=== PATIENT | male | born 1930 | race Caucasian/White ===

== ENCOUNTER 2018-09-12 07:37 | Emergency (ER) | payer MEDICARE ==
[~2018-09-12] VITALS: Ht 180.3 cm; Wt 80.3 kg
[2018-09-12] MEDS ORDERED: KETOROLAC TROMETHAMINE 30 MG/ML VIAL ONE (08:29)
[2018-09-12] MEDS ORDERED: KETOROLAC TROMETHAMINE 30 MG/ML VIAL IM ONE (09:00)
--- NOTE | 2018-09-12 09:24 | Diagnostic Imaging Report ---
EXAM: CT Abdomen and Pelvis WITHOUT contrast INDICATION: ^[id number] ^[id number] COMPARISON: None. TECHNIQUE: Abdomen and pelvis were scanned utilizing a multidetector helical scanner from the lung base to the pubic symphysis without administration of IV contrast. Absence of intravenous contrast decreases sensitivity for detection of focal lesions and vascular pathology. Coronal and sagittal reformations were obtained. Routine protocol was performed. IV CONTRAST: None. 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 LOWER THORAX: Subsegmental atelectasis in both lung bases. Subpleural reticulation of the lungs in the right lower lobe may represent nonspecific mild pulmonary fibrosis. Mild bronchiectasis. Interstitial edema. Diffuse coronary artery calcifications. HEPATOBILIARY: No focal hepatic lesions. No biliary ductal dilation. GALLBLADDER: No radio-opaque stones or sludge. No wall thickening. SPLEEN: No splenomegaly. PANCREAS: No focal masses or ductal dilatation. ADRENALS: No adrenal nodules KIDNEYS/URETERS: No hydronephrosis. No cystic or solid mass lesions. 2 mm faint calcification in the interpolar region of the right kidney on coronal image 65 suggestive of small nonobstructing stone. No additional calcified stones in the remaining collecting system. The left ureter is mildly prominent, nonspecific finding. GI TRACT: No abnormal distention, wall thickening, or evidence of bowel obstruction. Moderate amount of retained stool throughout the colon without bowel dilatation. Appendix is normal. PELVIC ORGANS/BLADDER: The prostate is enlarged measuring 5.8 cm in transverse diameter. The urinary bladder is moderately distended and associated with diffuse circumferential wall thickening. No calcified stones within the urinary bladder. LYMPH NODES: No lymphadenopathy. VESSELS: The abdominal aorta and pelvic arteries are tortuous but normal in size and associated with moderate nonobstructing atherosclerotic calcifications. Moderate calcifications of both proximal renal arteries. PERITONEUM / RETROPERITONEUM: No free air or fluid. BONES: Moderate multilevel degenerative changes of the lumbar spine, worse at L1-L2 and L5-S1. Right hip replacement. SOFT TISSUES: Moderate elevation of the left hemidiaphragm. IMPRESSION: Small nonobstructing right nephrolithiasis. Signed by: Dr. Mitzi Bello M.D. on 09/12/2018 9:20 AM
[2018-09-12 10:05] VITALS: BP 152/81
--- NOTE | 2018-09-12 10:40 | Diagnostic Imaging Report ---
LUMBAR SPINE X-RAY - 3 VIEWS HISTORY: ^[id number] ^[id number] COMPARISON: None available. FINDINGS: Bones: No acute displaced fracture. Chronic mild wedge compression deformity of T12 and L1 with associated secondary degenerative changes. Minimal retrolisthesis of L5 over S1 x 2 mm. Rotatory scoliosis. Joints: Advanced multilevel degenerative changes throughout the lumbar spine, worse at T12-L1 and L1-L2 vertebral bodies. No significant foraminal narrowing. Soft tissues: Diffuse vascular calcifications. IMPRESSION: Chronic mild wedge compression deformity of T12 and L1. 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 Signed by: Dr. Mitzi Bello M.D. on 09/12/2018 10:37 AM
== END 2018-09-12 10:04 | disposition home or self-care (01) ==
LOC: FSED 07:37
DX: M54.5 Low back pain (principal); N20.1 Calculus of ureter; N40.0 Benign prostatic hyperplasia without lower urinary tract symptoms; I48.2 Chronic atrial fibrillation; I50.22 Chronic systolic (congestive) heart failure; I35.0 Nonrheumatic aortic (valve) stenosis; I10 Essential (primary) hypertension; E78.5 Hyperlipidemia, unspecified; Z95.0 Presence of cardiac pacemaker
CPT/HCPCS: 72100; 74176; 80053; 81003; 85025; 96372; 99283; J1885